=== PATIENT | female | born 1975 | race Two or more races ===

== ENCOUNTER 2017-01-03 17:50 | Emergency (ER) | payer OTHER ==
[~2017-01-03] VITALS: Ht 162.6 cm; Wt 86.2 kg
[2017-01-03] MEDS ORDERED: EPINEPHrine HCL 1 MG/1 ML AMP SC ONE (18:45)
[2017-01-03] MEDS ORDERED: diphenhdrAMINE HCL 50 MG/1 ML VL IV ONE (18:45)
[2017-01-03 19:36] VITALS: BP 144/83
== END 2017-01-03 20:08 | disposition home or self-care (01) ==
LOC: ER 17:50
DX: T78.40XA Allergy, unspecified, initial encounter (principal); E11.9 Type 2 diabetes mellitus without complications; I10 Essential (primary) hypertension
CPT/HCPCS: 96372; 96374; 99284; J0171; J1200